=== PATIENT | male | born 1970 | race Caucasian/White ===

== ENCOUNTER 2018-03-21 06:15 | Day surgery (SDC) | payer OTHER ==
[2018-03-18 10:42] VITALS: BMI 27.2
[2018-03-21] MEDS ORDERED: LIDOCAINE HCL/PF 2% SDV 5ML VIAL ONE (08:00)
[2018-03-21] MEDS ORDERED: PROPOFOL 20 ML ONE ×2 (08:00)
[2018-03-21] MEDS ORDERED: MIDAZOLAM HCL 2 MG/2 ML SINGLE DOSE VIAL ONE (08:00)
[2018-03-21] MEDS ORDERED: BUPIVACAINE HCL/PF 0.5% (5MG/ML) 10 ML VIAL ONE (08:31)
[2018-03-21] MEDS ORDERED: BUPIVACAINE HCL/PF (5 MG/ML) 30 ML VIAL IJ ONE ×2 (08:37)
[2018-03-21] MEDS ORDERED: ceFAZolin SODIUM 1 GM VIAL ONE (08:40)
[2018-03-21] MEDS ORDERED: KETOROLAC TROMETHAMINE 30 MG/1 ML VIAL ONE (09:35)
[2018-03-21] MEDS ORDERED: ONDANSETRON 4 MG/2 ML VIAL IVPUSH PRN (09:46)
[2018-03-21] MEDS ORDERED: oxyCODONE HCL 5 MG TABLET PO PRN (09:46)
[2018-03-21] MEDS ORDERED: LACTATED RINGERS SOLUTION 1,000 ML IV SCH (10:00)
--- NOTE | 2018-03-21 10:40 | OP ---
Operative Note - Note: Operative Date: 03/21/18 Pre-Operative Diagnosis: penile deformity/phimosis Operation: circumcision and penoplasty Findings: severe phimosis scarred irregular frenulum causing curvature of glans Post-Operative Diagnosis: Same as Pre-op Surgeon: Rusty Borges Anesthesia: General
[2018-03-21] MEDS ORDERED: ACETAMINOPHEN 500 MG TABLET (FP) PO PRN (11:00)
[2018-03-21 12:14] VITALS: BP 140/80; PULSE 75; TEMP 98
--- NOTE | 2018-03-21 19:38 | OP ---
DATE OF OPERATION: 03/21/2018 PREOPERATIVE DIAGNOSES: Penile deformity and phimosis. POSTOPERATIVE DIAGNOSES: Penile deformity and phimosis. PROCEDURE: Circumcision and penoplasty. ANESTHESIA: General. ATTENDING: Lashae Mims MD The patient presents with a history of a tight phimosis with inability to retract the foreskin. In addition, the patient has had numerous injuries to the frenulum with scarring of the frenulum. The patient and his family have been given all the risks and benefits of the procedure. They agreed to the procedure in order to minimize further injury to the penis. The patient was brought in the operating room, placed in supine position on the operating room table. Antibiotics were given preoperatively for surgical prophylaxis. The patient's status as to allergies to medication is noted. At this point, the patient was prepped and draped in the usual sterile manner. The distal preputial skin is excised utilizing the guillotine technique. At this point, the proximal penile skin below the glans is cut to allow a 1.5 cm fringe below the glans. The frenulum and scarred aspects of the glans are excised and sent for specimen. At this point, hemostasis is obtained utilizing electrocauterization circumferentially. A stay stitch is placed in the glans at the level of the frenular insertion. With traction, the glans is then reapproximated with interrupted chromic stitches. A 2-layer closure is utilized for the glans. At this point, the subcutaneous tissue is reapproximated circumferentially. With this accomplished, interrupted chromic stitches are placed circumferentially to reapproximate the penile skin. Excellent hemostasis was obtained, no complications were noted. A dressing is placed at the end of the procedure. The stay suture is removed. Marcaine was injected preoperatively and postoperatively in order to minimize anesthesia. LASHAE MIMS M.D. [id number]
--- NOTE | 2018-03-23 18:24 | PATH ---
Surgical Pathology Report Patient Name: LEXA ODONNELL [facility]. Rec. #: [id number] /Age/Gender: 1970 (Age: 47) / M Account: [id number] Location: [facility] SURGICAL Taken: 03/21/2018 Received: 03/22/2018 Reported: 03/23/2018 Physicians: Rusty Borges Specimen(s) Received A: PENILE SKIN B: GLANS Clinical History Phimosis Final Diagnosis A. PENILE SKIN, CIRCUMCISION: GENITAL SKIN WITHOUT SIGNIFICANT PATHOLOGIC FINDINGS. B. GLANS, EXCISION: GENITAL SKIN WITH FOCAL SUPERFICIAL MILD CHRONIC DERMAL INFILTRATE. Electronically Signed Martina Lindsey M.D. Gross Description A. Received in formalin labeled "penile skin" are irregular fragments of skin measuring 3 x 2 x 1.5 and 1.5 x 1.5 x 1.5 cm. No lesions are identified. Nocturnist Physician sections are submitted in one cassette. B. Received in formalin labeled "glans" is a pink-zelaya soft tissue which measure 0.5 x 0.5 x 0.4 cm. The specimen is entirely submitted in one cassette. MLSZ/03/22/2018 sanml/03/22/2018
== END 2018-03-21 12:05 | disposition home or self-care (01) ==
LOC: JASU-SURG 06:15
PROVIDERS: ATTEND Urology
PROC: 0VTTXZZ Resection of Prepuce, External Approach (ICD-10-PCS; principal; 2018-03-21 08:00)
PROC: 0VW Male Reproductive System, Revision (ICD-10-PCS; 2018-03-21 08:00)
DX: N47.1 Phimosis (principal); N48.89 Other specified disorders of penis
CPT/HCPCS: 88304-TC; 94760

== ENCOUNTER 2018-10-03 07:44 | Day surgery (SDC) | payer OTHER ==
[2018-09-30 10:08] VITALS: BMI 30.8
[2018-10-03] MEDS ORDERED: LIDOCAINE HCL 1%, 10 MG/ML (20ML VIAL) ONE (10:20)
[2018-10-03] MEDS ORDERED: PROPOFOL 20 ML ONE (11:19)
[2018-10-03] MEDS ORDERED: MIDAZOLAM HCL 2 MG/2 ML SINGLE DOSE VIAL ONE (11:19)
[2018-10-03] MEDS ORDERED: SUCCINYLCHOLINE CHLORIDE 200 MG/10 ML VIAL ONE (11:19)
[2018-10-03] MEDS ORDERED: fentaNYL CITRATE 250 MCG/5 ML VIAL ONE (11:19)
[2018-10-03] MEDS ORDERED: ceFAZolin SODIUM 1 GM VIAL IVPB ONE (11:30)
[2018-10-03] MEDS ORDERED: BUPIVACAINE HCL/PF (5 MG/ML) 30 ML VIAL IJ ONE (12:00)
--- NOTE | 2018-10-03 12:14 | OP ---
Operative Note - Note: Operative Date: 10/03/18 Pre-Operative Diagnosis: elective infertility Operation: bilateral vasectomy Post-Operative Diagnosis: Same as Pre-op Surgeon: Rusty Borges (\) Anesthesia: General
[2018-10-03] MEDS ORDERED: oxyCODONE HCL 5 MG TABLET PO PRN ×2 (12:34)
[2018-10-03] MEDS ORDERED: ONDANSETRON 4 MG/2 ML VIAL IVPUSH PRN (12:34)
[2018-10-03] MEDS ORDERED: LACTATED RINGERS SOLUTION 1,000 ML IV SCH (12:45)
[2018-10-03 14:23] VITALS: TEMP 98.1
[2018-10-03 15:01] VITALS: BP 129/85; PULSE 75
--- NOTE | 2018-10-03 22:09 | OP ---
DATE OF OPERATION: 10/03/2018 PREOPERATIVE DIAGNOSIS: Elective infertility. POSTOPERATIVE DIAGNOSIS: Elective infertility. PROCEDURE: Bilateral vasectomy. SURGEON: Lashae Mims MD ANESTHESIA: General. DESCRIPTION OF PROCEDURE: The patient was brought in the operating room and placed in the supine position on the operating room table. Anesthesia and preoperative antibiotics were administered. The patient was then prepped and draped in the usual sterile manner. The left hemiscrotum was first palpated, and the left vas deferens was identified. A clamp was placed through the skin in order to isolate the left vas deferens. At this point with the vas deferens in the surgeon's fingers, an overlying incision on the skin was made in a vertical fashion. Blunt and sharp dissection was utilized, and the vas was identified and pulled out of the wounds. It was cleaned of extraneous tissue. The proximal and distal aspects of the vas were clipped with a hemoclips. The vas was then cut and the specimen sent to Pathology. A 2-layered closure was then done through the left scrotum. On the right side, the same was performed in the same manner without complications. Excellent hemostasis was obtained on both sides. Local anesthesia was applied. No complications were noted. The disposition of the patient was to recovery room. LASHAE MIMS M.D. [id number]
--- NOTE | 2018-10-04 18:34 | PATH ---
Surgical Pathology Report Patient Name: LEXA ODONNELL Med. Rec. #: [id number] /Age/Gender: 1970 (Age: 48) / M Account: [id number] Location: [facility] SURGICAL Taken: 10/03/2018 Received: 10/03/2018 Reported: 10/04/2018 Physicians: Rusty Borges Specimen(s) Received A: LEFT VAS DEFERENS B: RIGHT VAS DEFERENS Clinical History Encounter for sterilization Final Diagnosis A. VAS DEFERENS, LEFT, VASECTOMY: FULL LUMINAL PORTION OF UNREMARKABLE VAS DEFERENS B. VAS DEFERENS, RIGHT, VASECTOMY: FULL LUMINAL PORTION OF UNREMARKABLE VAS DEFERENS Electronically Signed Martina Lindsey M.D. Gross Description A. Received in formalin labeled "left vas deferens," is a 1.8 cm in length tubular structure, consistent with a portion of vas deferens. The specimen is serially sectioned and entirely submitted in one cassette. B. Received in formalin labeled "right vas deferens," is a 4.5 cm in length tubular structure, consistent with a portion of vas deferens. The specimen is serially sectioned and sales service representative sections are submitted in one cassette. /10/03/2018 saudi10/03/2018
== END 2018-10-03 15:05 | disposition home or self-care (01) ==
LOC: JASU-SURG 07:44
PROVIDERS: ATTEND Urology
PROC: 0VBQ0ZZ Excision of Bilateral Vas Deferens, Open Approach (ICD-10-PCS; principal; 2018-10-03 10:00)
DX: Z30.2 Encounter for sterilization (principal)
CPT/HCPCS: 88302-TC; 94760